=== PATIENT | male | born 1945 | race Caucasian/White ===

== ENCOUNTER 2024-04-18 04:23 | Day surgery (SDC) | payer OTHER, BC ==
[2024-04-13 16:32] VITALS: BMI 27.1
[2024-04-18 11:09] VITALS: RESP 16
[2024-04-18] MEDS ORDERED: PROPOFOL 20 ML ONE (13:08)
[2024-04-18] MEDS ORDERED: ONDANSETRON 4 MG/2 ML VIAL IVPUSH PRN (13:19)
[2024-04-18] MEDS ORDERED: LACTATED RINGERS SOLUTION 1,000 ML IV SCH (13:30)
[2024-04-18] MEDS: ceFAZolin SODIUM 1 GM VIAL IVPB ONE (13:38)
[2024-04-18] MEDS ORDERED: oxyCODONE HCL 5 MG TABLET ONE (16:17)
[2024-04-18] MEDS: oxyCODONE HCL 5 MG TABLET PO PRN (16:41)
[2024-04-18 17:14] VITALS: TEMP 97.8
[2024-04-18 17:58] VITALS: BP 127/66; PULSE 55
== END 2024-04-18 17:35 | disposition home or self-care (01) ==
LOC: JASU-SURG 04:23
PROVIDERS: ATTEND Urology
PROC: 0TC78ZZ Extirpation of Matter from Left Ureter, Via Natural or Artificial Opening Endoscopic (ICD-10-PCS; principal; 2024-04-18 13:00)
PROC: 0T778DZ Dilation of Left Ureter with Intraluminal Device, Via Natural or Artificial Opening Endoscopic (ICD-10-PCS; 2024-04-18 13:00)
PROC: BT1FZZZ Fluoroscopy of Left Kidney, Ureter and Bladder (ICD-10-PCS; 2024-04-18 13:00)
DX: N20.1 Calculus of ureter (principal); N40.0 Benign prostatic hyperplasia without lower urinary tract symptoms; E11.9 Type 2 diabetes mellitus without complications; I10 Essential (primary) hypertension; M13.88 Other specified arthritis, other site
CPT/HCPCS: 76000-TC-FY; 82962; 94760; C1758

== ENCOUNTER 2024-04-24 11:17 | Inpatient (IN) | payer OTHER, BC ==
[2024-04-24] MEDS ORDERED: ACETAMINOPHEN INJECTION 100 ML ONE (12:00)
[2024-04-24] MEDS: ACETAMINOPHEN 1000 MG/100 ML BAG IVPB ONE (12:05)
[2024-04-24 12:37] LABS: HEMATOCRIT 33.8 % (35.4-49); HEMOGLOBIN 10.8 GM/dL (11.7-16.9); MCH 30.3 pg (25.7-33.7); MEAN CELL VOLUME 94.7 fl (80-96); MEAN PLT VOLUME 8.4 fl (7.5-11.1); PLATELET COUNT 351 10^3/uL (134-434); RBC 3.57 M/mm3 (4.00-5.60); RDW 13.9 % (11.9-15.9); WHITE BLOOD COUNT 18.9 K/mm3 (4.0-10.0)
[2024-04-24 13:03] LABS: INR 1.08 (0.83-1.09); PROTHROMBIN TIME (PATIENT) 12.2 SEC (9.7-13.0)
[2024-04-24 13:05] LABS: ACTIVATED PTT 30.7 SECONDS (25.2-36.5)
[2024-04-24 13:13] LABS: POTASSIUM 5.2 mmol/L (3.5-5.1)
[2024-04-24 13:15] LABS: CALCIUM 9.2 mg/dL (8.5-10.1)
[2024-04-24 13:16] LABS: ALBUMIN 2.7 g/dl (3.4-5.0); BLOOD UREA NITROGEN 90.6 mg/dL (7-18); LACTIC ACID 2.3 mmol/L (0.4-2.0)
[2024-04-24 13:18] LABS: CREATININE 4.6 mg/dL (0.55-1.3)
[2024-04-24 13:19] LABS: BILIRUBIN,TOTAL 0.5 mg/dL (0.2-1); TOT PROT 6.1 g/dl (6.4-8.2)
[2024-04-24 13:30] LABS: ANISOCYTOSIS 0; MACROCYTOSIS 0
[2024-04-24] MEDS: SODIUM CHLORIDE 0.9% 500 ML INFUS.BAG IV ONE (13:40)
[2024-04-24] MEDS: SODIUM CHLORIDE 1,000 ML IV SCH (13:44)
[2024-04-24 17:10] LABS: EPI CELLS 8 /uL (0-25.1); HYALINE CASTS 4 /uL (0-3.1); URINE APPEARANCE TURBID; URINE BILIRUBIN NEGATIVE (NEGATIVE); URINE COLOR YELLOW; URINE GLUCOSE (UA) 3+ (NEGATIVE); URINE KETONE NEGATIVE (NEGATIVE); URINE LEUK ESTERASE 2+ (NEGATIVE); URINE NITRITE NEGATIVE (NEGATIVE); URINE PROTEIN 1+ (NEGATIVE); URINE UROBILINOGEN 0.2 mg/dL (0.2-1.0); URINE WBC 961 /uL (0-25.8)
[2024-04-24 17:52] LABS: URINE BACTERIA 111.5 /uL (0-1359); URINE RBC 53.4 /uL (0-23.9)
[2024-04-24] MEDS: hydrALAZINE HCL 10 MG TABLET PO SCH (21:35)
[2024-04-25] MEDS: BUPIVACAINE HCL/PF 0.25% (2.5MG/ML) 10 ML VIAL IJ ONE
[2024-04-25] MEDS: ceFAZolin SODIUM 1 GM VIAL IVPB ONE
[2024-04-25 08:27] LABS: POTASSIUM 4.7 mmol/L (3.5-5.1)
[2024-04-25 08:31] LABS: CALCIUM 8.8 mg/dL (8.5-10.1)
[2024-04-25 08:32] LABS: ALBUMIN 2.4 g/dl (3.4-5.0)
[2024-04-25 08:35] LABS: CREATININE 3.9 mg/dL (0.55-1.3)
[2024-04-25 08:36] LABS: BILIRUBIN,TOTAL 0.5 mg/dL (0.2-1); BLOOD UREA NITROGEN 83.7 mg/dL (7-18)
[2024-04-25 08:38] LABS: TOT PROT 5.4 g/dl (6.4-8.2)
[2024-04-25 08:39] LABS: BASO % 0.4 % (0-2.0); EOS % 2.3 % (0-4.5); HEMATOCRIT 30.6 % (35.4-49); HEMOGLOBIN 9.8 GM/dL (11.7-16.9); LYMPH % 9.9 % (8-40); MCH 30.1 pg (25.7-33.7); MCHC 32.1 g/dl (32.0-35.9); MEAN CELL VOLUME 93.8 fl (80-96); MEAN PLT VOLUME 8.6 fl (7.5-11.1); MONO % 8.5 % (3.8-10.2); NEUT % 78.9 % (42.8-82.8); PLATELET COUNT 358 10^3/uL (134-434); RBC 3.26 M/mm3 (4.00-5.60); WHITE BLOOD COUNT 18.7 K/mm3 (4.0-10.0)
[2024-04-25] MEDS: PANTOPRAZOLE 40 MG TABLET PO SCH (09:59)
[2024-04-25] MEDS: amLODIPine BESYLATE 5 MG TABLET (FP) PO SCH (10:30)
[2024-04-25] MEDS ORDERED: BUPIVACAINE HCL/PF 0.25% (2.5MG/ML) 10 ML VIAL ONE (10:33)
[2024-04-25] MEDS ORDERED: MIDAZOLAM HCL 2 MG/2 ML SINGLE DOSE VIAL ONE ×2 (10:41→14:55)
[2024-04-25] MEDS ORDERED: PROPOFOL 20 ML ONE ×2 (10:41→14:45)
[2024-04-25] MEDS ORDERED: ROCURONIUM BROMIDE 50 MG/5 ML SYRINGE ONE ×3 (10:44→10:46)
[2024-04-25] MEDS ORDERED: oxyCODONE HCL 5 MG TABLET PO PRN ×2 (11:12→23:34)
[2024-04-25] MEDS ORDERED: ONDANSETRON 4 MG/2 ML VIAL IVPUSH PRN ×2 (11:12→17:01)
[2024-04-25] MEDS ORDERED: ADENOSINE 6 MG/2 ML VIAL IVPUSH ONE ×3 (11:27→11:30)
[2024-04-25] MEDS ORDERED: AMIODARONE HCL 150 MG/3 ML VIAL ONE (11:41)
[2024-04-25 12:19] LABS: HEMATOCRIT 31.9 % (35.4-49); HEMOGLOBIN 10.2 GM/dL (11.7-16.9); MCH 30.4 pg (25.7-33.7); MEAN CELL VOLUME 95.2 fl (80-96); MEAN PLT VOLUME 8.5 fl (7.5-11.1); PLATELET COUNT 344 10^3/uL (134-434); RBC 3.35 M/mm3 (4.00-5.60); RDW 14.3 % (11.9-15.9); WHITE BLOOD COUNT 20.5 K/mm3 (4.0-10.0)
[2024-04-25 12:24] LABS: INR 1.13 (0.83-1.09); PROTHROMBIN TIME (PATIENT) 12.9 SEC (9.7-13.0)
[2024-04-25 12:27] LABS: ACTIVATED PTT 31.8 SECONDS (25.2-36.5)
[2024-04-25 13:20] LABS: ANISOCYTOSIS 0; MACROCYTOSIS 0
[2024-04-25] MEDS: AMIODARONE IN DEXTROSE,ISO-OSM 360 MG/200 ML BAG IV SCH (14:19)
[2024-04-25] MEDS ORDERED: cefOXitin SODIUM 2 GM VIAL (RESTRICTED TO ID) IVPB ONE (14:31)
[2024-04-25 14:40] LABS: POTASSIUM 4.7 mmol/L (3.5-5.1)
[2024-04-25 14:42] LABS: CALCIUM 8.8 mg/dL (8.5-10.1)
[2024-04-25 14:44] LABS: ALBUMIN 2.4 g/dl (3.4-5.0); BLOOD UREA NITROGEN 79.6 mg/dL (7-18)
[2024-04-25] MEDS ORDERED: SUCCINYLCHOLINE CHLORIDE 200 MG/10 ML SYRINGE ONE (14:45)
[2024-04-25] MEDS ORDERED: LIDOCAINE HCL/PF 2% SDV 5ML VIAL ONE (14:45)
[2024-04-25 14:46] LABS: CREATININE 3.9 mg/dL (0.55-1.3)
[2024-04-25 14:47] LABS: BILIRUBIN,TOTAL 0.3 mg/dL (0.2-1); TOT PROT 5.6 g/dl (6.4-8.2)
[2024-04-25] MEDS ORDERED: DEXAMETHASONE SOD PHOSPHATE 4 MG/1 ML VIAL ONE (15:49)
[2024-04-25] MEDS: cefOXitin SODIUM 1 GM VIAL (RESTRICTED TO ID) IVPB ONE (15:54)
[2024-04-25] MEDS ORDERED: ceFAZolin SODIUM 1 GM VIAL ONE (16:06)
[2024-04-25] MEDS ORDERED: HYDROmorphone HCl 2 MG/ML VIAL ONE (16:27)
[2024-04-25] MEDS ORDERED: ONDANSETRON 4 MG/2 ML VIAL ONE (16:55)
[2024-04-25] MEDS ORDERED: KETOROLAC TROMETHAMINE 30 MG/1 ML VIAL ONE (16:55)
[2024-04-25] MEDS ORDERED: SUGAMMADEX SODIUM 200 MG/2 ML VIAL ONE (16:57)
[2024-04-25] MEDS ORDERED: PROMETHAZINE HCL 25 MG/1 ML VIAL IVPB PRN (17:01)
[2024-04-25] MEDS: LACTATED RINGERS SOLUTION 1,000 ML IV SCH (17:43)
[2024-04-25] MEDS: LACTATED RINGERS SOLUTION 1,000 ML/1,000 ML INFUS.BAG IV STA (18:09)
[2024-04-25] MEDS: ACETAMINOPHEN 1000 MG/100 ML BAG IVPB ONE (19:30)
[2024-04-25] MEDS: ATORVASTATIN CA 40 MG TABLET (FP) PO SCH (21:36)
[2024-04-25] MEDS: ERTAPENEM SODIUM 0.5 GM in SODIUM CHLORIDE 50 ML IVPB SCH (22:40)
[2024-04-25] MEDS: LACTATED RINGERS SOLUTION 1000 ML INFUS.BAG IV ONE (23:35)
[2024-04-26] MEDS: AMIODARONE IN DEXTROSE,ISO-OSM 360 MG/200 ML BAG IV SCH (01:18)
[2024-04-26] MEDS: ACETAMINOPHEN 325 MG TABLET (FP) PO SCH (01:19)
[2024-04-26 06:38] LABS: HEMATOCRIT 29.1 % (35.4-49); HEMOGLOBIN 9.5 GM/dL (11.7-16.9); MCH 30.3 pg (25.7-33.7); MCHC 32.5 g/dl (32.0-35.9); MEAN CELL VOLUME 93.1 fl (80-96); MEAN PLT VOLUME 8.4 fl (7.5-11.1); PLATELET COUNT 411 10^3/uL (134-434); RBC 3.13 M/mm3 (4.00-5.60); RDW 14.1 % (11.9-15.9); WHITE BLOOD COUNT 16.9 K/mm3 (4.0-10.0)
[2024-04-26 07:00] LABS: POTASSIUM 5.4 mmol/L (3.5-5.1)
[2024-04-26 07:05] LABS: ALBUMIN 2.1 g/dl (3.4-5.0); CALCIUM 8.2 mg/dL (8.5-10.1); MAGNESIUM 1.9 mg/dL (1.8-2.4)
[2024-04-26 07:07] LABS: CREATININE 3.5 mg/dL (0.55-1.3)
[2024-04-26 07:08] LABS: PHOSPHOROUS 5.9 mg/dL (2.5-4.9)
[2024-04-26 07:10] LABS: BILIRUBIN,TOTAL 0.2 mg/dL (0.2-1); TOT PROT 5.2 g/dl (6.4-8.2)
[2024-04-26 08:41] LABS: ANISOCYTOSIS 0; MACROCYTOSIS 0
[2024-04-26] MEDS: PANTOPRAZOLE 40 MG TABLET PO SCH (09:39)
[2024-04-26] MEDS: hydrALAZINE HCL 10 MG TABLET PO SCH (09:45)
[2024-04-26] MEDS: amLODIPine BESYLATE 5 MG TABLET (FP) PO SCH (09:45)
[2024-04-26] MEDS: INSULIN ASPART SLIDING SCALE (NOVOLOG) 1 VIAL SQ SCH (11:16)
[2024-04-26] MEDS: SODIUM ZIRCONIUM CYCLOSILICATE (LOKELMA) 5 GM PACKET PO SCH (14:12)
[2024-04-26] MEDS: HEPARIN NA (PORCINE) 5,000 UNITS/ML 1ML VIAL SQ SCH (14:12)
[2024-04-26 14:33] LABS: HEMATOCRIT 33.6 % (35.4-49); HEMOGLOBIN 10.8 GM/dL (11.7-16.9); MCH 30.2 pg (25.7-33.7); MCHC 32.2 g/dl (32.0-35.9); MEAN CELL VOLUME 93.6 fl (80-96); MEAN PLT VOLUME 8.3 fl (7.5-11.1); PLATELET COUNT 542 10^3/uL (134-434); RBC 3.59 M/mm3 (4.00-5.60); RDW 14.4 % (11.9-15.9); WHITE BLOOD COUNT 22.4 K/mm3 (4.0-10.0)
[2024-04-26 16:18] VITALS: BMI 27.1
[2024-04-26] MEDS: ATORVASTATIN CA 40 MG TABLET (FP) PO SCH (21:38)
[2024-04-27 07:43] LABS: HEMATOCRIT 29.9 % (35.4-49); HEMOGLOBIN 9.8 GM/dL (11.7-16.9); MCH 30.6 pg (25.7-33.7); MCHC 32.8 g/dl (32.0-35.9); MEAN CELL VOLUME 93.3 fl (80-96); MEAN PLT VOLUME 8.1 fl (7.5-11.1); PLATELET COUNT 484 10^3/uL (134-434); RDW 14.1 % (11.9-15.9); WHITE BLOOD COUNT 18.3 K/mm3 (4.0-10.0)
[2024-04-27 07:57] LABS: POTASSIUM 5.4 mmol/L (3.5-5.1)
[2024-04-27 08:08] LABS: ALBUMIN 2.2 g/dl (3.4-5.0); BLOOD UREA NITROGEN 82.1 mg/dL (7-18); CALCIUM 8.2 mg/dL (8.5-10.1)
[2024-04-27 08:09] LABS: MAGNESIUM 1.9 mg/dL (1.8-2.4)
[2024-04-27 08:11] LABS: CREATININE 3.9 mg/dL (0.55-1.3)
[2024-04-27 08:12] LABS: PHOSPHOROUS 4.7 mg/dL (2.5-4.9)
[2024-04-27 08:13] LABS: BILIRUBIN,TOTAL 0.2 mg/dL (0.2-1); TOT PROT 5.5 g/dl (6.4-8.2)
[2024-04-27] MEDS: SODIUM CHLORIDE 0.45% 1,000 ML IV SCH (10:33)
[2024-04-27] MEDS ORDERED: oxyCODONE HCL 5 MG TABLET PO PRN (12:06)
[2024-04-27] MEDS: HEPARIN NA (PORCINE) 5,000 UNITS/ML 1ML VIAL SQ SCH (13:01)
[2024-04-27] MEDS: ACETAMINOPHEN 325 MG TABLET (FP) PO SCH (15:48)
[2024-04-27] MEDS: INSULIN ASPART SLIDING SCALE (NOVOLOG) 1 VIAL SQ SCH (17:55)
[2024-04-27] MEDS: ERTAPENEM SODIUM 0.5 GM in SODIUM CHLORIDE 50 ML IVPB SCH (21:23)
[2024-04-27] MEDS: hydrALAZINE HCL 10 MG TABLET PO SCH (21:24)
[2024-04-27] MEDS: ATORVASTATIN CA 40 MG TABLET (FP) PO SCH (21:24)
[2024-04-28 07:57] LABS: POTASSIUM 5.1 mmol/L (3.5-5.1)
[2024-04-28 08:01] LABS: HEMATOCRIT 34.4 % (35.4-49); HEMOGLOBIN 11.2 GM/dL (11.7-16.9); MCH 30.9 pg (25.7-33.7); MCHC 32.6 g/dl (32.0-35.9); MEAN CELL VOLUME 94.6 fl (80-96); MEAN PLT VOLUME 8.5 fl (7.5-11.1); PLATELET COUNT 608 10^3/uL (134-434); RBC 3.64 M/mm3 (4.00-5.60); RDW 14.3 % (11.9-15.9)
[2024-04-28 08:05] LABS: ALBUMIN 2.5 g/dl (3.4-5.0); BLOOD UREA NITROGEN 72.4 mg/dL (7-18); CALCIUM 8.5 mg/dL (8.5-10.1)
[2024-04-28 08:09] LABS: CREATININE 3.3 mg/dL (0.55-1.3)
[2024-04-28 08:10] LABS: BILIRUBIN,TOTAL 0.4 mg/dL (0.2-1); TOT PROT 6.1 g/dl (6.4-8.2)
[2024-04-28] MEDS: PANTOPRAZOLE 40 MG TABLET PO SCH (09:37)
[2024-04-28] MEDS: amLODIPine BESYLATE 5 MG TABLET (FP) PO SCH (09:37)
[2024-04-28 09:46] LABS: ANISOCYTOSIS 0; HELMET CELLS 0; HOWELL-JOLLY BODIES 0; MACROCYTOSIS 0; OVALOCYTE 0; ROULEAU 0; SICKELED CELLS 0; TARGET CELLS 0; TEAR DROP CELLS 0; TOXIC GRANULATION 0
[2024-04-29 06:54] LABS: HEMATOCRIT 32.1 % (35.4-49); HEMOGLOBIN 10.5 GM/dL (11.7-16.9); MCH 30.6 pg (25.7-33.7); MCHC 32.6 g/dl (32.0-35.9); MEAN CELL VOLUME 93.9 fl (80-96); MEAN PLT VOLUME 8.2 fl (7.5-11.1); PLATELET COUNT 590 10^3/uL (134-434); RBC 3.41 M/mm3 (4.00-5.60); RDW 14.1 % (11.9-15.9); WHITE BLOOD COUNT 16.5 K/mm3 (4.0-10.0)
[2024-04-29 07:14] LABS: POTASSIUM 5.2 mmol/L (3.5-5.1)
[2024-04-29 07:17] LABS: CALCIUM 8.4 mg/dL (8.5-10.1)
[2024-04-29 07:18] LABS: ALBUMIN 2.2 g/dl (3.4-5.0); BLOOD UREA NITROGEN 60.9 mg/dL (7-18)
[2024-04-29 07:21] LABS: BILIRUBIN,TOTAL 0.5 mg/dL (0.2-1); CREATININE 2.4 mg/dL (0.55-1.3)
[2024-04-29 07:28] LABS: TOT PROT 5.6 g/dl (6.4-8.2)
[2024-04-29 08:59] LABS: ANISOCYTOSIS 0; HELMET CELLS 0; HOWELL-JOLLY BODIES 0; MACROCYTOSIS 0; OVALOCYTE 0; ROULEAU 0; SICKELED CELLS 0; TARGET CELLS 0; TEAR DROP CELLS 0; TOXIC GRANULATION 0
[2024-04-29] MEDS: SODIUM ZIRCONIUM CYCLOSILICATE (LOKELMA) 5 GM PACKET PO SCH (11:31)
[2024-04-30 07:30] LABS: POTASSIUM 5.3 mmol/L (3.5-5.1)
[2024-04-30 07:35] LABS: BLOOD UREA NITROGEN 52.2 mg/dL (7-18); CALCIUM 8.5 mg/dL (8.5-10.1)
[2024-04-30 07:39] LABS: CREATININE 2.1 mg/dL (0.55-1.3)
[2024-04-30] MEDS ORDERED: INSULIN ASPART SLIDING SCALE (NOVOLOG) 1 VIAL SQ ONE (15:29)
[2024-05-01 07:14] LABS: HEMOGLOBIN 9.8 GM/dL (11.7-16.9); MCH 30.8 pg (25.7-33.7); MCHC 32.5 g/dl (32.0-35.9); MEAN CELL VOLUME 94.8 fl (80-96); MEAN PLT VOLUME 8.4 fl (7.5-11.1); PLATELET COUNT 700 10^3/uL (134-434); RBC 3.17 M/mm3 (4.00-5.60); RDW 14.1 % (11.9-15.9); WHITE BLOOD COUNT 18.7 K/mm3 (4.0-10.0)
[2024-05-01 07:31] LABS: POTASSIUM 5.3 mmol/L (3.5-5.1)
[2024-05-01 07:33] LABS: CALCIUM 8.6 mg/dL (8.5-10.1)
[2024-05-01 07:34] LABS: ALBUMIN 2.3 g/dl (3.4-5.0); BLOOD UREA NITROGEN 49.4 mg/dL (7-18); MAGNESIUM 1.6 mg/dL (1.8-2.4)
[2024-05-01 07:38] LABS: BILIRUBIN,TOTAL 0.4 mg/dL (0.2-1)
[2024-05-01 07:39] LABS: TOT PROT 5.7 g/dl (6.4-8.2)
[2024-05-01] MEDS: SODIUM ZIRCONIUM CYCLOSILICATE (LOKELMA) 5 GM PACKET PO SCH (10:24)
[2024-05-01] MEDS: MAGNESIUM 2GM/50ML STERILE WATER IVPB IVPB ONE (11:03)
[2024-05-01] MEDS: ceFAZolin SODIUM 1 GM VIAL IVPB ONE (14:23)
[2024-05-01] MEDS ORDERED: PHENYLEPHRINE HCL 10 MG/1 ML SINGLE DOSE VIAL ONE (14:45)
[2024-05-01] MEDS ORDERED: ONDANSETRON 4 MG/2 ML VIAL IVPUSH PRN (15:44)
[2024-05-01] MEDS: LACTATED RINGERS SOLUTION 1,000 ML IV SCH (16:18)
[2024-05-01] MEDS: INSULIN ASPART SLIDING SCALE (NOVOLOG) 1 VIAL SQ SCH (17:58)
[2024-05-01] MEDS: ACETAMINOPHEN 325 MG TABLET (FP) PO SCH (20:55)
[2024-05-01] MEDS: ERTAPENEM SODIUM 0.5 GM in SODIUM CHLORIDE 50 ML IVPB SCH (20:56)
[2024-05-01] MEDS: HEPARIN NA (PORCINE) 5,000 UNITS/ML 1ML VIAL SQ SCH (21:47)
[2024-05-01] MEDS: ATORVASTATIN CA 40 MG TABLET (FP) PO SCH (21:47)
[2024-05-01] MEDS: hydrALAZINE HCL 10 MG TABLET PO SCH (21:47)
[2024-05-02] MEDS: PANTOPRAZOLE 40 MG TABLET PO SCH (09:37)
[2024-05-02] MEDS: amLODIPine BESYLATE 5 MG TABLET (FP) PO SCH (09:37)
[2024-05-02] MEDS: SODIUM ZIRCONIUM CYCLOSILICATE (LOKELMA) 5 GM PACKET PO SCH (09:48)
[2024-05-02 12:13] LABS: HEMATOCRIT 32.8 % (35.4-49); HEMOGLOBIN 10.6 GM/dL (11.7-16.9); MCH 29.9 pg (25.7-33.7); MCHC 32.2 g/dl (32.0-35.9); MEAN CELL VOLUME 92.9 fl (80-96); MEAN PLT VOLUME 8.5 fl (7.5-11.1); PLATELET COUNT 732 10^3/uL (134-434); RBC 3.53 M/mm3 (4.00-5.60); RDW 14.6 % (11.9-15.9); WHITE BLOOD COUNT 14.5 K/mm3 (4.0-10.0)
[2024-05-02 12:32] LABS: POTASSIUM 4.8 mmol/L (3.5-5.1)
[2024-05-02 12:36] LABS: ALBUMIN 2.4 g/dl (3.4-5.0); CALCIUM 8.6 mg/dL (8.5-10.1)
[2024-05-02 12:37] LABS: BLOOD UREA NITROGEN 43.2 mg/dL (7-18)
[2024-05-02 12:40] LABS: CREATININE 1.8 mg/dL (0.55-1.3)
[2024-05-02 12:41] LABS: BILIRUBIN,TOTAL 0.3 mg/dL (0.2-1); TOT PROT 5.8 g/dl (6.4-8.2)
[2024-05-02 13:31] LABS: ANISOCYTOSIS 0; MACROCYTOSIS 0
[2024-05-03 07:21] LABS: BASO % 1.1 % (0-2.0); HEMATOCRIT 31.5 % (35.4-49); HEMOGLOBIN 10.3 GM/dL (11.7-16.9); LYMPH % 14.5 % (8-40); MCH 30.7 pg (25.7-33.7); MCHC 32.6 g/dl (32.0-35.9); MEAN CELL VOLUME 94.2 fl (80-96); MEAN PLT VOLUME 8.8 fl (7.5-11.1); MONO % 11.1 % (3.8-10.2); NEUT % 71.3 % (42.8-82.8); PLATELET COUNT 699 10^3/uL (134-434); RBC 3.35 M/mm3 (4.00-5.60)
[2024-05-03 07:43] LABS: CALCIUM 8.1 mg/dL (8.5-10.1)
[2024-05-03 07:44] LABS: ALBUMIN 2.4 g/dl (3.4-5.0); BLOOD UREA NITROGEN 50.5 mg/dL (7-18)
[2024-05-03 07:47] LABS: CREATININE 1.9 mg/dL (0.55-1.3)
[2024-05-03 07:48] LABS: BILIRUBIN,TOTAL 0.3 mg/dL (0.2-1); TOT PROT 5.6 g/dl (6.4-8.2)
[2024-05-04 07:49] LABS: HEMATOCRIT 30.9 % (35.4-49); HEMOGLOBIN 10.2 GM/dL (11.7-16.9); MCH 30.8 pg (25.7-33.7); MCHC 33.2 g/dl (32.0-35.9); MEAN CELL VOLUME 92.9 fl (80-96); MEAN PLT VOLUME 8.7 fl (7.5-11.1); PLATELET COUNT 629 10^3/uL (134-434); RBC 3.32 M/mm3 (4.00-5.60); RDW 14.2 % (11.9-15.9); WHITE BLOOD COUNT 14.2 K/mm3 (4.0-10.0)
[2024-05-04 07:56] LABS: POTASSIUM 4.6 mmol/L (3.5-5.1)
[2024-05-04 08:01] LABS: ALBUMIN 2.2 g/dl (3.4-5.0); BLOOD UREA NITROGEN 40.7 mg/dL (7-18); CALCIUM 8.3 mg/dL (8.5-10.1)
[2024-05-04 08:02] LABS: MAGNESIUM 1.6 mg/dL (1.8-2.4)
[2024-05-04 08:04] LABS: CREATININE 1.6 mg/dL (0.55-1.3)
[2024-05-04 08:06] LABS: BILIRUBIN,TOTAL 0.4 mg/dL (0.2-1); TOT PROT 5.5 g/dl (6.4-8.2)
[2024-05-05 09:39] LABS: BASO % 1.3 % (0-2.0); EOS % 1.2 % (0-4.5); HEMOGLOBIN 10.3 GM/dL (11.7-16.9); LYMPH % 15.5 % (8-40); MCH 30.1 pg (25.7-33.7); MCHC 32.1 g/dl (32.0-35.9); MEAN CELL VOLUME 93.8 fl (80-96); MONO % 10.3 % (3.8-10.2); NEUT % 71.7 % (42.8-82.8); PLATELET COUNT 638 10^3/uL (134-434); RBC 3.42 M/mm3 (4.00-5.60); RETICULOCYTES 1.16 % (0.5-1.5); WHITE BLOOD COUNT 15.5 K/mm3 (4.0-10.0)
[2024-05-06 09:12] LABS: POTASSIUM 4.8 mmol/L (3.5-5.1)
[2024-05-06 09:15] LABS: CALCIUM 8.5 mg/dL (8.5-10.1)
[2024-05-06 09:17] LABS: ALBUMIN 2.2 g/dl (3.4-5.0); BLOOD UREA NITROGEN 36.7 mg/dL (7-18)
[2024-05-06 09:19] LABS: CREATININE 1.5 mg/dL (0.55-1.3)
[2024-05-06 09:21] LABS: BILIRUBIN,TOTAL 0.4 mg/dL (0.2-1); TOT PROT 5.8 g/dl (6.4-8.2)
[2024-05-06] MEDS: SODIUM CHLORIDE 250 ML IV ONE (11:13)
[2024-05-06] MEDS: D5-NS + 40 MEQ KCL - 40 MEQ/1,000 ML INFUS.BAG IV SCH (17:46)
[2024-05-07 08:06] LABS: POTASSIUM 4.5 mmol/L (3.5-5.1)
[2024-05-07 08:09] LABS: BLOOD UREA NITROGEN 31.2 mg/dL (7-18); CALCIUM 8.1 mg/dL (8.5-10.1)
[2024-05-07 08:12] LABS: CREATININE 1.6 mg/dL (0.55-1.3)
[2024-05-07 08:13] LABS: BILIRUBIN,TOTAL 0.3 mg/dL (0.2-1)
[2024-05-07 08:15] LABS: TOT PROT 5.3 g/dl (6.4-8.2)
[2024-05-07 08:21] LABS: HEMATOCRIT 30.6 % (35.4-49); MCH 30.3 pg (25.7-33.7); MCHC 32.5 g/dl (32.0-35.9); MEAN CELL VOLUME 93.3 fl (80-96); MEAN PLT VOLUME 8.8 fl (7.5-11.1); PLATELET COUNT 588 10^3/uL (134-434); RBC 3.28 M/mm3 (4.00-5.60); RDW 14.1 % (11.9-15.9)
[2024-05-07] MEDS ORDERED: FENTANYL CITRATE/PF 50 MCG/ML VIAL ONE (10:05)
[2024-05-07] MEDS ORDERED: MIDAZOLAM HCL 2 MG/2 ML SINGLE DOSE VIAL ONE (10:05)
[2024-05-07] MEDS: SODIUM CHLORIDE 500 ML IV SCH (11:00)
[2024-05-07 11:02] LABS: ANISOCYTOSIS 1+; MACROCYTOSIS 1+
[2024-05-07] MEDS: MIDAZOLAM HCL 2 MG/2 ML SINGLE DOSE VIAL IVPUSH ONE (11:04)
[2024-05-07] MEDS: FENTANYL CITRATE/PF 50 MCG/ML VIAL IVPUSH ONE (11:04)
[2024-05-08 07:21] LABS: BASO % 1.1 % (0-2.0); HEMATOCRIT 30.2 % (35.4-49); HEMOGLOBIN 10.1 GM/dL (11.7-16.9); LYMPH % 18.7 % (8-40); MCH 30.7 pg (25.7-33.7); MCHC 33.2 g/dl (32.0-35.9); MEAN CELL VOLUME 92.4 fl (80-96); MEAN PLT VOLUME 8.4 fl (7.5-11.1); MONO % 10.1 % (3.8-10.2); NEUT % 68.1 % (42.8-82.8); PLATELET COUNT 528 10^3/uL (134-434); RBC 3.27 M/mm3 (4.00-5.60); RDW 14.2 % (11.9-15.9); WHITE BLOOD COUNT 11.8 K/mm3 (4.0-10.0)
[2024-05-08 07:42] LABS: POTASSIUM 5.4 mmol/L (3.5-5.1)
[2024-05-08 07:47] LABS: ALBUMIN 2.1 g/dl (3.4-5.0); CALCIUM 8.2 mg/dL (8.5-10.1)
[2024-05-08 07:50] LABS: CREATININE 1.5 mg/dL (0.55-1.3)
[2024-05-08 07:51] LABS: BILIRUBIN,TOTAL 0.3 mg/dL (0.2-1)
[2024-05-08 07:52] LABS: TOT PROT 5.4 g/dl (6.4-8.2)
[2024-05-08 12:12] LABS: CA OXALATE MONOHYDR. 10 % (.); SIZE 3x2 mm (.); URIC ACID 90 % (.); WEIGHT 7 mg (.)
[2024-05-08] MEDS: SODIUM ZIRCONIUM CYCLOSILICATE (LOKELMA) 5 GM PACKET PO SCH (13:57)
[2024-05-08] MEDS: SODIUM CHLORIDE 0.45% 1,000 ML IV SCH (13:57)
[2024-05-08 15:41] LABS: CALCIUM 8.3 mg/dL (8.5-10.1)
[2024-05-08 15:42] LABS: BLOOD UREA NITROGEN 29.3 mg/dL (7-18)
[2024-05-08 15:45] LABS: CREATININE 1.8 mg/dL (0.55-1.3)
[2024-05-09 03:07] LABS: METHYLMALONIC ACID- 191 nmol/L (0-378)
[2024-05-09 07:21] LABS: EOS % 2.6 % (0-4.5); HEMATOCRIT 32.2 % (35.4-49); HEMOGLOBIN 10.3 GM/dL (11.7-16.9); LYMPH % 17.9 % (8-40); MEAN CELL VOLUME 93.9 fl (80-96); MEAN PLT VOLUME 8.2 fl (7.5-11.1); MONO % 9.9 % (3.8-10.2); NEUT % 68.6 % (42.8-82.8); PLATELET COUNT 529 10^3/uL (134-434); RBC 3.43 M/mm3 (4.00-5.60); RDW 13.9 % (11.9-15.9); WHITE BLOOD COUNT 12.1 K/mm3 (4.0-10.0)
[2024-05-09 07:40] LABS: POTASSIUM 4.6 mmol/L (3.5-5.1)
[2024-05-09 07:47] LABS: CALCIUM 8.3 mg/dL (8.5-10.1)
[2024-05-09 07:48] LABS: ALBUMIN 2.2 g/dl (3.4-5.0); BLOOD UREA NITROGEN 25.9 mg/dL (7-18)
[2024-05-09 07:51] LABS: CREATININE 1.6 mg/dL (0.55-1.3)
[2024-05-09 07:52] LABS: BILIRUBIN,TOTAL 0.3 mg/dL (0.2-1)
[2024-05-09 07:56] LABS: TOT PROT 5.4 g/dl (6.4-8.2)
[2024-05-11 13:48] LABS: BASO % 0.7 % (0-2.0); EOS % 2.6 % (0-4.5); HEMATOCRIT 31.9 % (35.4-49); HEMOGLOBIN 10.6 GM/dL (11.7-16.9); LYMPH % 25.1 % (8-40); MCH 31.1 pg (25.7-33.7); MCHC 33.2 g/dl (32.0-35.9); MEAN CELL VOLUME 93.8 fl (80-96); MEAN PLT VOLUME 9.1 fl (7.5-11.1); MONO % 11.6 % (3.8-10.2); PLATELET COUNT 445 10^3/uL (134-434); RDW 13.7 % (11.9-15.9); WHITE BLOOD COUNT 10.1 K/mm3 (4.0-10.0)
[2024-05-11 14:10] LABS: CHLORIDE 109 mmol/L (98-107); POTASSIUM 4.1 mmol/L (3.5-5.1); SODIUM 141 mmol/L (136-145)
[2024-05-11 14:12] LABS: CALCIUM 8.3 mg/dL (8.5-10.1)
[2024-05-11 14:13] LABS: ALBUMIN 2.1 g/dl (3.4-5.0); ANION GAP 7 mmol/L (4-13); BLOOD UREA NITROGEN 23.8 mg/dL (7-18); CO2 26 mmol/L (21-32)
[2024-05-11 14:16] LABS: CREATININE 1.5 mg/dL (0.55-1.3); SGOT/AST 15 U/L (15-37)
[2024-05-11 14:17] LABS: BILIRUBIN,TOTAL < 0.1 mg/dL (0.2-1); TOT PROT 5.5 g/dl (6.4-8.2)
[2024-05-11 14:19] LABS: ALK PHOS 159 U/L (45-117)
[2024-05-11 14:23] LABS: GLUCOSE,RANDOM 232 mg/dL (74-106)
[2024-05-11 14:35] LABS: SGPT/ALT 18 U/L (13-61)
[2024-05-12 12:06] VITALS: BP 110/63; PULSE 66; RESP 17; TEMP 97.7
== END 2024-05-12 13:51 | disposition home or self-care (01) | DRG 351 ==
LOC: JER 11:17 → JASUSAT 12:07 → JERBED 16:00 → J8W 20:02 → JICU 04-25 12:32 → J2W 04-26 14:56 → J4S 05-04 18:47
PROVIDERS: ADMIT Family Medicine; ATTEND Family Medicine
PROC: 0YU64JZ Supplement Left Inguinal Region with Synthetic Substitute, Percutaneous Endoscopic Approach (ICD-10-PCS; principal; 2024-04-25 13:15)
PROC: 0T778DZ Dilation of Left Ureter with Intraluminal Device, Via Natural or Artificial Opening Endoscopic (ICD-10-PCS; 2024-05-01)
PROC: 0TC18ZZ Extirpation of Matter from Left Kidney, Via Natural or Artificial Opening Endoscopic (ICD-10-PCS; 2024-05-01)
PROC: BT1FZZZ Fluoroscopy of Left Kidney, Ureter and Bladder (ICD-10-PCS; 2024-05-01)
PROC: 0T913ZZ Drainage of Left Kidney, Percutaneous Approach (ICD-10-PCS; 2024-05-01)
PROC: 0T9430Z Drainage of Left Kidney Pelvis with Drainage Device, Percutaneous Approach (ICD-10-PCS; 2024-05-07)
DX: K40.30 Unilateral inguinal hernia, with obstruction, without gangrene, not specified as recurrent (principal); E87.20 Acidosis, unspecified; N17.9 Acute kidney failure, unspecified; I47.10 Supraventricular tachycardia, unspecified; C61 Malignant neoplasm of prostate; I12.9 Hypertensive chronic kidney disease with stage 1 through stage 4 chronic kidney disease, or unspecified chronic kidney disease; E11.22 Type 2 diabetes mellitus with diabetic chronic kidney disease; N20.0 Calculus of kidney; E87.5 Hyperkalemia; N28.89 Other specified disorders of kidney and ureter; E78.5 Hyperlipidemia, unspecified; N18.9 Chronic kidney disease, unspecified
CPT/HCPCS: 36415; 49405; 71250-TC; 74176-TC; 76000-TC-FY; 76775-TC; 80048; 80053; 81003; 82360; 82550; 82607; 82728; 82747; 82962; 83540; 83550; 83605; 83690; 83735; 83921; 84100; 84484; 85014; 85025; 85027; 85045; 85610; 85730; 86850; 86900; 86901; 87040; 87070; 87075; 87086; 87102; 87116; 87205; 87206; 87210; 87481; 87635; 88300-TC; 93005; 93010; 94760; 97116-GP; 97162-GP; 99285-25; C1758; J0131; J1644